=== PATIENT | male | born 1960 | race Caucasian/White ===

== ENCOUNTER 2020-05-12 23:36 | Inpatient (IN) ==
[2020-05-12] MEDS ORDERED: NS 0.9% 1000 ml BAG 2,000 ML IV ONE (23:37)
[2020-05-12] MEDS ORDERED: Ondansetron 4 mg VIAL 2 MG/ML 2 ml VIAL IV ONE (23:37)
[2020-05-12] MEDS ORDERED: Morphine 10 MG/ML VIAL (1 ml) IV ONE (23:37)
[2020-05-12] MEDS ORDERED: Ondansetron 4 mg VIAL 2 MG/ML 2 ml VIAL ONE (23:54)
[2020-05-13] MEDS ORDERED: Morphine 4 MG/ML VIAL (1 ml) IV ONE (00:20)
[2020-05-13 00:44] LABS: ABS Basophils 0.2 10^3/ul (0-0.2); ABS Eosinophils 0.3 10^3/ul (0-0.6); ABS Lymphocytes 4.6 10^3/ul (1.0-4.8); ABS Monocytes 0.8 10^3/ul (0-0.8); ABS Neutrophils 17.5 10^3/ul (1.5-7.7); Eosinophil % 1.3 %; Hematocrit 44 % (42-52); Hemoglobin 15.3 g/dL (14.0-18.0); Lymphocyte % 19.7 %; Mean Corpuscular HGB Conc 35 g/dL (31-36); Mean Corpuscular Hemoglobin 31 pg (27-31); Mean Corpuscular Volume 89 fL (80-94); Mean Platelet Volume 8.8 fL (7.4-10.4); Platelet Count 286 10^3/uL (150-450); Red Blood Count 4.93 10^6 /uL (4.18-5.48); Red Cell Distribution Width 13 % (10-15); White Blood Count 23.5 10^3/uL (3.5-10.8)
[2020-05-13] MEDS ORDERED: ceFAZolin 2 GM PREMIX 2 GM/50 ML BAG ONE (00:57)
[2020-05-13] MEDS ORDERED: Lidocaine 2% PF 5 ML VIAL ONE (00:57)
[2020-05-13] MEDS ORDERED: Midazolam 5 mg/5 ml VIAL 1 mg/ml 5 ml VIAL (5 mg) ONE (00:57)
[2020-05-13] MEDS ORDERED: Succinylcholine 200 mg VIAL 20 mg/ml 10 ml VIAL (200 mg) ONE (00:57)
[2020-05-13] MEDS ORDERED: Propofol 10 MG/ML 20 ML BTL ONE (00:57)
[2020-05-13] MEDS ORDERED: fentaNYL 100 mcg/2 ml 50 MCG/ML VIAL ONE (00:57)
[2020-05-13 00:59] LABS: Albumin 4.6 g/dL (3.2-5.2); Albumin/Globulin Ratio 1.6 (1-3); BUN/Creatinine Ratio 19.7 (8-20); Calcium 10.1 mg/dL (8.6-10.3); EGFR African American 66.7 (>60); EGFR Non-African American 55.1 (>60); Globulin 2.9 g/dL (2-4); Total Bilirubin 0.3 mg/dL (0.2-1.0); Total Protein 7.5 g/dL (6.4-8.9)
[2020-05-13] MEDS ORDERED: Naloxone 0.4 mg VIAL 0.4 mg/ml 1 ml VIAL IV PRN (01:12)
[2020-05-13] MEDS ORDERED: fentaNYL 100 mcg/2 ml 50 MCG/ML VIAL IV PRN (01:12)
[2020-05-13] MEDS ORDERED: Levalbuterol 0.63MG/3ML NEB UNIT OF USE INH PRN (01:12)
[2020-05-13] MEDS ORDERED: oxyCODONE/Acetamin 5/325 mg TAB PO PRN (01:12)
[2020-05-13] MEDS ORDERED: DiMENhydriNATE IV 50 mg/ml 1 ml VIAL IV PUSH PRN (01:12)
[2020-05-13] MEDS ORDERED: Sodium Citrate/Citric Acid LIQ 15 ML UDC ONE (01:19)
[2020-05-13] MEDS ORDERED: metroNIDAZOLE IV 500 MG/100ML 500 MG/100 ML BAG ONE (01:28)
[2020-05-13 01:52] LABS: Activated Partial Thrombo Time 25.8 seconds (26.0-38.0); INR 0.9 (0.82-1.09)
[2020-05-13] MEDS ORDERED: Rocuronium 50 mg VIAL 10 mg/ml 5 ml VIAL (50 mg) ONE (01:59)
[2020-05-13] MEDS ORDERED: Phenylephrine 40 mcg/mL 10mL (400mcg) SYRINGE ONE (02:04)
[2020-05-13] MEDS ORDERED: EPHEDrine (Pressors) 50 MG/ML VIAL ONE (02:11)
[2020-05-13] MEDS ORDERED: HYDROmorphone 1 MG/1 ML SYRINGE IV SLOW PU PRN (04:41)
[2020-05-13] MEDS ORDERED: Metoclopramide 5 MG/ML VIAL (10 mg) IV PRN (04:46)
[2020-05-13] MEDS: NS 0.9% 1000 ml BAG 1,000 ML IV SCH ×2 (05:27→23:48)
[2020-05-13] MEDS: Heparin 5000 UNITS/ML 1 mL VIAL SUBCUT SCH ×3 (06:42→22:48)
[2020-05-13 08:06] LABS: ABS Basophils 0.1 10^3/ul (0-0.2); ABS Monocytes 0.5 10^3/ul (0-0.8); ABS Neutrophils 15.3 10^3/ul (1.5-7.7); Eosinophil % 0.1 %; Hematocrit 40 % (42-52); Hemoglobin 13.4 g/dL (14.0-18.0); Mean Corpuscular HGB Conc 34 g/dL (31-36); Mean Corpuscular Hemoglobin 31 pg (27-31); Mean Corpuscular Volume 90 fL (80-94); Mean Platelet Volume 8.1 fL (7.4-10.4); Platelet Count 177 10^3/uL (150-450); Red Cell Distribution Width 13 % (10-15)
[2020-05-13 08:21] LABS: BUN/Creatinine Ratio 19.8 (8-20); Calcium 8.1 mg/dL (8.6-10.3); EGFR African American 85.9 (>60); Potassium 4.5 mmol/L (3.5-5.0)
[2020-05-13] MEDS ORDERED: Nicotine GUM 2MG FRUIT FLAVOR PO PRN (08:31)
[2020-05-13 18:31] LABS: Urine Appearance Clear; Urine Bilirubin Negative (Negative); Urine Blood 1+ (Negative); Urine Color Straw; Urine Glucose Negative (Negative); Urine Ketones Negative (Negative); Urine Nitrite Negative (Negative); Urine Protein Negative (Negative); Urine Specific Gravity 1.012 (1.010-1.030); Urine Urobilinogen Negative (Negative)
[2020-05-13 18:36] LABS: Urine Bacteria Absent (Absent); Urine Red Blood Cell 3+(>10/hpf) (Absent); Urine White Blood Cell Trace(0-5/hpf) (Absent)
[2020-05-14] MEDS: Heparin 5000 UNITS/ML 1 mL VIAL SUBCUT SCH ×3 (05:33→22:55)
[2020-05-14 06:24] LABS: ABS Basophils 0.1 10^3/ul (0-0.2); ABS Eosinophils 0.1 10^3/ul (0-0.6); ABS Lymphocytes 1.7 10^3/ul (1.0-4.8); ABS Monocytes 0.4 10^3/ul (0-0.8); ABS Neutrophils 6.2 10^3/ul (1.5-7.7); Eosinophil % 1.3 %; Hematocrit 34 % (42-52); Hemoglobin 11.5 g/dL (14.0-18.0); Lymphocyte % 20.4 %; Mean Corpuscular HGB Conc 34 g/dL (31-36); Mean Corpuscular Hemoglobin 30 pg (27-31); Mean Corpuscular Volume 89 fL (80-94); Mean Platelet Volume 8.1 fL (7.4-10.4); Platelet Count 155 10^3/uL (150-450); Red Blood Count 3.81 10^6 /uL (4.18-5.48); Red Cell Distribution Width 13 % (10-15); White Blood Count 8.5 10^3/uL (3.5-10.8)
[2020-05-14] MEDS: NS 0.9% 1000 ml BAG 1,000 ML IV SCH ×2 (08:20→17:53)
[2020-05-15] MEDS: NS 0.9% 1000 ml BAG 1,000 ML IV SCH (01:45)
[2020-05-15] MEDS: Heparin 5000 UNITS/ML 1 mL VIAL SUBCUT SCH (05:46)
[2020-05-15 07:39] VITALS: BP 117/70
== END 2020-05-15 09:50 | disposition home or self-care (01) | DRG 228 ==
LOC: ED 23:36 → AA 05-13 00:58 → SSU 05-13 05:20
PROVIDERS: ADMIT Surgery; ATTEND Surgery